=== PATIENT | male | born 1990 | race Caucasian/White ===

== ENCOUNTER 2023-12-23 17:59 | Emergency (ER) | payer SELFPAY ==
--- NOTE | 2023-12-23 18:32 | ED ---
General Adult HPI - General Chief complaint: Head Injury Stated complaint: fall-face injury Time Seen by Provider: 12/23/23 18:05 Source: patient, RN notes reviewed Mode of arrival: ambulatory Limitations: no limitations - History of Present Illness Initial comments: 33-year-old male presents to the emergency department for evaluation of fall with head injury. Patient states that earlier today around 12PM he slipped walking causing him to fall forward. He reports that he did hit his face just below his eye on the dresser. He reports pain to his cheek bone with bruising. Patient is concerned about removing his dentures. He denies loss of consciousness, nausea, vomiting. Denies vision changes, pain with eye movements. - Related Data Previous Rx's Medication Instructions Recorded Amoxic-Pot Clav 875-125Mg 1 tab PO Q12HR 10 Days #20 tab 12/23/23 [Augmentin 875-125] Allergies Allergy/AdvReac Type Severity Reaction Status Date / Time No Known Allergies Allergy Verified 12/23/23 18:04 Review of Systems ROS Statement: Those systems with pertinent positive or pertinent negative responses have been documented in the HPI. ROS Other: All systems not noted in ROS Statement are negative. Past Medical History Past Medical History: No Reported History History of Any Multi-Drug Resistant Organisms: None Reported Past Surgical History: No Surgical Hx Reported Past Psychological History: No Psychological Hx Reported Smoking Status: Current every day smoker Past Alcohol Use History: None Reported Past Drug Use History: Marijuana General Exam Limitations: no limitations General appearance: alert, in no apparent distress Head exam: Present: other (Ecchymosis of the left lower periorbital region with tenderness to palpation, tenderness to palpation over the left maxilla) Eye exam: Present: normal appearance, PERRL, EOMI. Absent: scleral icterus, conjunctival injection, periorbital swelling ENT exam: Present: normal exam, normal oropharynx, mucous membranes moist, TM's normal bilaterally, normal external ear exam Neck exam: Present: normal inspection, full ROM. Absent: tenderness, meningismus, lymphadenopathy Respiratory exam: Present: normal lung sounds bilaterally. Absent: respiratory distress, wheezes, rales, rhonchi, stridor Cardiovascular Exam: Present: regular rate, normal rhythm, normal heart sounds. Absent: systolic murmur, diastolic murmur, rubs, gallop, clicks Extremities exam: Present: normal inspection, full ROM, normal capillary refill. Absent: tenderness, pedal edema, joint swelling, calf tenderness Back exam: Present: normal inspection Neurological exam: Present: alert, oriented X3, CN II-XII intact Psychiatric exam: Present: normal affect, normal mood Skin exam: Present: warm, dry, intact, normal color. Absent: rash Course Vital Signs 12/23/23 12/23/23 18:01 19:39 Temperature 97.9 F Pulse Rate 66 61 Respiratory 20 18 Rate Blood Pressure 153/86 128/83 O2 Sat by Pulse 99 98 Oximetry Medical Decision Making - Medical Decision Making Was pt. sent in by a medical professional or institution (, PA, MARKETING FINANCE MANAGER, urgent care, hospital, or halfway...) When possible be specific @ -No Did you speak to anyone other than the patient for history (EMS, parent, family, police, friend...)? What history was obtained from this source @ - provided some history Did you review nursing and triage notes (agree or disagree)? Why? @ -I reviewed and agree with nursing and triage notes Were old charts reviewed (outside hosp., previous admission, EMS record, old EKG, old radiological studies, urgent care reports/EKG's, halfway records)? Report findings @ -No old charts were reviewed Differential Diagnosis (chest pain, altered mental status, abdominal pain women, abdominal pain men, vaginal bleeding, weakness, fever, dyspnea, syncope, headache, dizziness, GI bleed, back pain, seizure, CVA, palpatations, mental health, musculoskeletal)? @ -Head injury, blowout fracture, maxillofacial fracture, this list is not all inclusive EKG interpreted by me (3pts min.). @ -None X-rays interpreted by me (1pt min.). @ -None done CT interpreted by me (1pt min.). @ -CT facial bones shows anterior left maxillary wall fracture with posterior displacement of the wall, fluid level likely due to hemorrhage within the maxillary sinus CT brain shows no acute intracranial hemorrhage or mass effect U/S interpreted by me (1pt. min.). @ -None done What testing was considered but not performed or refused? (CT, X-rays, U/S, labs)? Why? @ -None What meds were considered but not given or refused? Why? @ -None Did you discuss the management of the patient with other professionals (professionals i.e. , PA, MARKETING FINANCE MANAGER, lab, RT, psych nurse, social work lecturer, pharmacy general manager, teacher, ethics officer, case assistant)? Give summary @ -No Was smoking cessation discussed for >3mins.? @ -No Was critical care preformed (if so, how long)? @ -No Were there social determinants of health that impacted care today? How? (Homelessness, low income, unemployed, alcoholism, drug addiction, transportation, low edu. Level, literacy, decrease access to med. care, senior care, rehab)? @ -No Was there de-escalation of care discussed even if they declined (Discuss DNR or withdrawal of care, Hospice)? DNR status @ -No What co-morbidities impacted this encounter? (DM, HTN, Smoking, COPD, CAD, Cancer, CVA, ARF, Chemo, Hep., AIDS, mental health diagnosis, sleep apnea, morbid obesity)? @ -None Was patient admitted / discharged? Hospital course, mention meds given and route, prescriptions, significant lab abnormalities, going to OR and other pertinent info. @ -Discharged. Patient presented to the emergency department for injury to left side of face. Patient fell causing him to hit his face on the corner of his dresser. He denies pain with eye movements, vision changes. EOMI, PERRL. He does have ecchymosis and swelling to lower eyelid. CT facial bones obtained shows an anterior left maxillary wall fracture with posterior displacement of the wall, fluid level likely due to hemorrhage. Patient does note that he has had a nosebleed. Discussed findings with patient. Advised to abstain from blowing his nose. He will be started on antibiotics. He is updated on his tetanus vaccination. Starter pack was provided for Tylenol #3s as well. Advised to follow-up with ear nose and throat, Dr. Kline. Patient understanding and agreeable with plan. Patient stable at time of discharge. Case discussed with Dr. Kathleen who agrees with plan of care. Undiagnosed new problem with uncertain prognosis? @ -No Drug Therapy requiring intensive monitoring for toxicity (Heparin, Nitro, Insulin, Cardizem)? @ -No Were any procedures done? @ -No Diagnosis/symptom? @ -Maxillofacial fracture Acute, or Chronic, or Acute on Chronic? @ -Acute Uncomplicated (without systemic symptoms) or Complicated (systemic symptoms)? @ -Uncomplicated Side effects of treatment? @ -No Exacerbation, Progression, or Severe Exacerbation? @ -No Poses a threat to life or bodily function? How? (Chest pain, [place], [place], pneumonia, PE, COPD, DKA, ARF, appy, cholecystitis, CVA, Diverticulitis, Homicidal, Suicidal, threat to staff... and all critical care pts) @ -No Disposition Clinical Impression: Facial fracture due to fall Disposition: HOME SELF-CARE Condition: Stable Instructions (If sedation given, give patient instructions): Facial Fracture (ED) Additional Instructions: Please lease picker antibiotic and take to completion. Follow up with ear, nose, and throat. DO NOT blow your nose. Sleep with the head of your bed elevated. Return to the emergency department for new or worsening symptoms. Prescriptions: Amoxic-Pot Clav 875-125Mg [Augmentin 875-125] 1 tab PO Q12HR 10 Days #20 tab Is patient prescribed a controlled substance at d/c from ED?: No Referrals: None,Stated [Primary Care Provider] - 1-2 days Javi Kline MD [STAFF PHYSICIAN] - 1-2 days
[2023-12-23 18:47] VITALS: TEMP 97.9
--- NOTE | 2023-12-23 18:50 | CT ---
EXAMINATION TYPE: CT brain wo con DATE OF EXAM: 12/23/2023 COMPARISON: INDICATION: fall DLP: combined DLP 770.7 mGycm, Automated exposure control for dose reduction was used. CONTRAST: None CT of the brain is performed utilizing 3 mm thick sections through the posterior fossa and 3 mm thick sections through the remaining calvarium. Study is performed within 24 hours of arrival to the hosp [place]. No abnormal hyperdensity is present to suggest an acute intracranial hemorrhage. No mass lesion is evident. No acute infarcts are evident. Ventricles and sulci are appropriate for the patient age. Paranasal sinuses and mastoid air cells within the [id number] are clear. Free air is around the left globe. There are air-fluid levels within the left maxillary sinus. Fractu re of the orbital floors suspected. Fracture line is not identified. There may be a fracture near the lateral frontal and left maxillary wall. Series 204 image 21. There is posterior wall displacement o f the anterior left maxillary wall, series 206, image 7. IMPRESSION: 1. No acute intracranial process. Follow-up MRI can be performed as clinically indicated. 2. Anterior left maxillary wall fracture with air-fluid levels left maxillary sinus free air along th e inferior margin left orbit
--- NOTE | 2023-12-23 18:59 | CT ---
EXAMINATION TYPE: CT facial bones wo con DATE OF EXAM: 12/23/2023 COMPARISON: CT brain HISTORY: fall CT DLP: combined DLP 770.7 mGycm CONTRAST: 0 mL of Isovue 300 The paranasal sinuses are examined in the axial plane at 2 mm thick sections. Reconstructed images i n the coronal plane were obtained. Patient is edentulous. There is fracture with posterior wall displacement of the maxillary sinus wall. This extends to the l evel of the orbital floor. Rule out fracture into the left maxillary sinus is not identified. Defect however is evident adjacent to subcutaneous air within the anterior inferior left orbit. The medial wall of maxillary sinus appears intact. Posterior lateral left maxillary wall appears inta ct. There is a fracture line near the lateral anterior left maxillary sinus. Right maxillary sinus is clear. The ethmoid air cells are clear. The sphenoid sinuses are clear. T he frontal sinuses are clear. Left frontal sinus is hypoplastic. The septum is evaluated. There is septal deviation to the left. Left ostiomeatal unit is obstructed. Right ostiomeatal unit is patent. IMPRESSION: 1. Anterior left maxillary wall fracture with posterior displacement of the wall there is a fluid le john likely due to hemorrhage within the left maxillary sinus
[2023-12-23] MEDS: KETOROLAC 15 MG/ML 1 ML VIAL IM STA (19:33)
[2023-12-23] MEDS: DIPH,PERTUS(ACELL)TETVAC-LF 0.5 ML VIAL IM ONE (19:34)
[2023-12-23] MEDS: AMOXIC-POT CLAV 875-125MG 1 EACH TAB PO STA (19:35)
[2023-12-23] MEDS: IBUPROFEN 600 MG STARTER PACK 4 TAB BTL PO STA (19:35)
[2023-12-23] MEDS: ACET/COD 300 MG/30 MG STARTER PACK 6 TAB BTL PO STA (19:35)
[2023-12-23 19:53] VITALS: BP 128/83; PULSE 61; RESP 18
== END 2023-12-23 19:52 | disposition home or self-care (01) ==
LOC: EC 17:59
DX: S02.92XA Unspecified fracture of facial bones, initial encounter for closed fracture (principal); F17.200 Nicotine dependence, unspecified, uncomplicated; Z23 Encounter for immunization; W01.0XXA Fall on same level from slipping, tripping and stumbling without subsequent striking against object, initial encounter; Y93.01 Activity, walking, marching and hiking
CPT/HCPCS: 99283; 90471; 96372; 70486; 70450; 90715; J1885